=== PATIENT | female | born 1970 | race Caucasian/White ===

== ENCOUNTER 2023-07-08 14:58 | Emergency (ER) | payer OTHER, SELFPAY ==
[2023-07-08 15:08] VITALS: BP 126/80; PULSE 67; RESP 16; TEMP 36.6; O2SAT 99; BMI 37.2
--- NOTE | 2023-07-08 15:25 | ED.NURSE ---
Tdap on file in her MyChart was 05/03/2022.
--- NOTE | 2023-07-08 15:43 | ED.GENADULT ---
HPI - General Adult General Chief complaint: Animal Bite Stated complaint: left lac on hand Time Seen by Provider: 07/08/23 15:19 History of Present Illness HPI narrative: This 52-year-old female comes in with a cat scratch laceration on the dorsal aspect of her right hand. This was not done by her own cat but by CT the is residing in a prison and whose vaccinations are up-to-date. This was not a cat bite but rather a scratch by a claw that caused a 2 cm linear laceration on the dorsal aspect of her right hand. The patient states that her tetanus status is up-to-date. Related Data Previous Rx's Medication Instructions Recorded cephalexin 500 mg capsule 500 mg PO TID 5 days #15 caps 07/08/23 Allergies Allergy/AdvReac Type Severity Reaction Status Date / Time metoprolol Allergy Intermediate Hives Verified 07/08/23 15:14 tioconazole AdvReac Intermediate itching Verified 07/08/23 15:06 [From Monistat 1 (tioconazole)] other Allergy Intermediate Hives Uncoded 07/08/23 15:05 Review of Systems Status of ROS: Reports: 10 or more systems reviewed and unremarkable except as noted in History and below Narrative: Constitutional: No fevers, no weight gain or loss. Eyes: No discharge. No vision changes. HENT: No congestion, no sore throat, no ear pain. Cardiovascular: No chest pain, no palpitations. Respiratory: No shortness of breath, no wheezes, no cough. Gastrointestinal: No abdominal pain, no vomiting, no diarrhea. Genitourinary: No dysuria, no hematuria. Musculoskeletal: Normal range of motion. Skin: No rashes, no pruritis. Neurological: No dizziness, weakness, sensory change, speech change. Endo/Heme/Allergies: No bruising or bleeding. No polydipsia. Pysch: no suicidality, no anxiety, no insomnia. All other systems reviewed and are negative. PFSH PFSH Social History Smoking Status: Former smoker How often do you have a drink containing alcohol: monthly or less AUDIT-C Alcohol total score: 1 Non-prescribed substance use: denies use service: Yes Exam Narrative: Exam Narrative: Constitutional: Well-developed, well-nourished, no acute distress. HEENT: Normocephalic, atraumatic. Neck: Normal range of motion. Nontender. Supple. Heart: Regular. No murmurs. Normal rate. Intact distal pulses. Lungs: Clear to auscultation. No chest discomfort. No wheezes, rhonchi, or rales. Abdomen: Normal bowel sounds. Nontender. No rebound tenderness. Genitalia: Deferred. Back: No midline tenderness. Normal range of motion. Extremities: Normal range of motion. 2 cm linear laceration on the dorsal aspect of the right hand. Tendon function is intact. Skin: Intact. No rash. Warm. No erythema or pallor. Neurologic: No altered sensation. No weakness. Alert and oriented. Psychiatric: No suicidality. No anxiety or depression. No insomnia. Nursing notes and vitals signs are reviewed. Const: Vital Signs, click to edit/add: Vital Signs - 24 hr 07/08/23 15:08 Temperature 97.8 F Pulse Rate [Pulse Oximeter] 67 Respiratory Rate 16 Blood Pressure [Le ft Upper Arm] 126/80 Pulse Oximetry 99 Oxygen Delivery Me thod Room Air Course Vital Signs Vital signs: Initial Vital Signs Temperature 97.8 F 07/08/23 15:08 Temperature Source Temporal Artery Scan 07/08/23 15:08 Pulse Rate 67 07/08/23 15:08 Pulse Rhythm Regular 07/08/23 15:08 Respiratory Rate 16 07/08/23 15:08 Blood Pressure 126/80 07/08/23 15:08 Blood Pressure Mean 95 07/08/23 15:08 Blood Pressure Position Sitting 07/08/23 15:08 Pulse Oximetry 99 07/08/23 15:08 Oxygen Delivery Method Room Air 07/08/23 15:08 Vital Signs Temperature 97.8 F 07/08/23 15:08 Pulse Rate 67 07/08/23 15:08 Respiratory Rate 16 07/08/23 15:08 Blood Pressure 126/80 07/08/23 15:08 Pulse Oximetry 99 07/08/23 15:08 Oxygen Delivery Method Room Air 07/08/23 15:08 Temperature 97.8 F 07/08/23 15:08 Pulse Rate 67 07/08/23 15:08 Respiratory Rate 16 07/08/23 15:08 Blood Pressure 126/80 07/08/23 15:08 Pulse Oximetry 99 07/08/23 15:08 Oxygen Delivery Method Room Air 07/08/23 15:08 Medical Decision Making MDM Narrative Medical decision making narrative: This patient has a laceration from a clot of a CT on the dorsal aspect of her right hand. This wound did require repair. After the wound was cleansed I did apply Dermabond. The wound edges were nicely approximated and then a Band-Aid was applied. A cat scratch is not is likely to cause secondary infection as a cat bite but nevertheless seeing the need to repair this wound I did provide prescription for some tablets of Keflex. Discharge Plan Discharge Clinical Impression: Laceration Patient Disposition: Home, Self-Care Condition: Stable Additional Instructions: Keep wound clean and dry. Take medication as prescribed. Follow up with MD return if worsening. Prescriptions: New cephalexin 500 mg capsule 500 mg PO TID 5 Days Qty: 15 0RF Stand Alone Forms: [employer] Info Instructions
== END 2023-07-08 16:10 | disposition home or self-care (01) ==
LOC: ED 16:03
PROVIDERS: Emergency Provider Emergency Medicine Emergency Medical Services
DX: S61.411A Laceration without foreign body of right hand, initial encounter (principal)
CPT/HCPCS: 12001; 99282; 99284